=== PATIENT | female | born 1985 | race African-American/Black ===

== ENCOUNTER → 2018-11-29 | Outpatient (REF) | payer OTHER ==
[2018-11-29 23:12] LABS: CHLAMYDIA DNA AMPLIFICATION NEGATIVE (NEGATIVE); GC DNA AMPLIFICATION NEGATIVE (NEGATIVE)
== END ==
LOC: M SFHCLERA 13:37
PROVIDERS: ATTEND Nurse Practitioner Family
DX: N92.6 Irregular menstruation, unspecified (principal)
CPT/HCPCS: 81002; 81025; 87070; 87088; 87186; 87491; 87591; G0463

== ENCOUNTER → 2019-02-12 | Outpatient (CLI) | payer OTHER ==
[2019-02-12 21:00] LABS: BASO % 0.2 % (0.0-1.0); EOS # 0.1 10^3/uL (0.0-0.50); EOS % 0.5 % (0.0-3.0); HEMATOCRIT 35.8 % (36.0-47.0); HEMOGLOBIN 11.9 g/dl (12.0-15.5); LYMPH # 2.3 10^3/uL (1.5-4.5); LYMPH % 25.2 % (24.0-44.0); MEAN CORPUSCULAR HEMOGLOBIN 24.8 pg (27.0-33.0); MEAN CORPUSCULAR HGB CONC 33.2 g/dl (32.0-36.5); MEAN CORPUSCULAR VOLUME 74.6 fl (80.0-96.0); MONO # 0.4 10^3/uL (0.0-0.8); MONO % 4.4 % (0.0-5.0); NEUTROPHILS # 6.4 10^3/uL (1.8-7.7); NEUTROPHILS % 69.4 % (36.0-66.0); PLATELET COUNT, AUTOMATED 288 10^3/uL (150-450); WHITE BLOOD COUNT 9.2 10^3/uL (4.0-10.0)
[2019-02-12 21:11] LABS: FREE T4 1.01 NG/DL (0.76-1.46); GLUCOSE CHALLENGE TEST 1 HOUR 133 MG/DL (LESS THAN 140); THYROID STIMULATING HORMONE 0.928 uIU/ML (0.358-3.740)
[2019-02-12 21:14] LABS: HEMOGLOBIN A1c 5.6 %
[2019-02-12 22:28] LABS: CHLAMYDIA DNA AMPLIFICATION NEGATIVE (NEGATIVE); GC DNA AMPLIFICATION NEGATIVE (NEGATIVE)
[2019-02-13 10:19] LABS: RUBELLA IgG QUALITATIVE IMMUNE (IMMUNE)
[2019-02-13 10:48] LABS: HEPATITIS C VIRUS ABY INDEX 0.3 INDEX (<0.8)
[2019-02-13 10:49] LABS: HIV 1&2 SCREEN CENTAUR NEGATIVE (NEGATIVE)
== END ==
LOC: M LRY 14:57
PROVIDERS: ATTEND Advanced Practice Midwife
DX: Z3A.10 10 weeks gestation of pregnancy (principal)

== ENCOUNTER → 2019-02-24 | Outpatient (CLI) | payer OTHER ==
[2019-02-24 18:10] LABS: HEMOGLOBIN A1c 5.5 %
== END ==
LOC: M SMT 15:08
PROVIDERS: ATTEND Obstetrics & Gynecology
DX: Z34.82 Encounter for supervision of other normal pregnancy, second trimester (principal); Z3A.00 Weeks of gestation of pregnancy not specified

== ENCOUNTER → 2019-03-23 | Outpatient (CLI) | payer OTHER ==
--- NOTE | 2019-03-24 10:09 | REP ---
Clinical: Anatomical evaluation. Comparison: None . Findings: Examination demonstrates a single live intrauterine in cephalic presentation. motion is identified by technologist. Placenta is noted anterior and grade air grade zero without evidence for placenta previa or abruption. Amniotic fluid volume is normal. Cervix measures 3.9 cm in length and appears closed. No evidence for nuchal cord. Gestational age by LMP 18 weeks 3 days with NOEMY 08/21/2019 . Gestational age by current measurements 18 weeks 4 days with NOEMY 08/20/2019 . FHR equals 152 beats per minute. BPD 4.0 cm 18 weeks 2 days HC 15.5 cm 18 weeks 3 days AC 13.8 cm 19 weeks 2 days FL 2.9 cm 19 weeks 0 days HL 2.5 cm 17 weeks 6 days HC/AC ratio 1.12 Estimated weight 207 grams (71st percentile). Anatomical assessment demonstrates normal structures including cranium, choroid plexus, cavum, cerebellum/posterior fossa, lungs, diaphragm, stomach, cord insertion/three-vessel cord, kidneys/bladder, and extremities. Limited evaluation of the facial features, heart/ventricular outflow tracts, and spine noted. Impression: Single live intrauterine in cephalic presentation demonstrating appropriate interval growth. Anatomical limitations as noted above. No gross abnormality identified. Electronically Signed by Santos Stone MD 03/24/2019 03:46 A
== END ==
LOC: M LRY 13:53
PROVIDERS: ATTEND Obstetrics & Gynecology
DX: Z34.82 Encounter for supervision of other normal pregnancy, second trimester (principal); Z3A.18 18 weeks gestation of pregnancy

== ENCOUNTER → 2019-05-01 | Outpatient (CLI) | payer OTHER ==
--- NOTE | 2019-05-01 16:34 | REP ---
Obstetric sonography: History: Supervision of followup anatomy, facial features, heart and spine views. Findings: Scanning through the gravid uterus demonstrates a viable single intrauterine gestation in a footling breech lie. motion is observed and heart rate is recorded at 168 beats per minute. An anterior grade 0 placenta is seen without evidence of previa or abruption. Amniotic fluid is subjectively normal. Closed cervical length measures 3.3 cm viewed transabdominally. There is corpus luteum cyst in the maternal left ovary measuring 2.5 cm in greatest diameter. Transabdominal and transvaginal imaging of the internal cervical os and cervix with color Doppler interrogation demonstrate vascular structures at the internal cervical os raising the question of vasa previa. Follow-up is recommended. No anomaly is seen. Left and right ventricular cardiac outflow tract views are still less than optimally seen due to position. The following additional anatomic structures are identified and felt to be unremarkable: cranium, choroid plexus, cavum, cerebellum and posterior fossa, face and profile, lungs, four-chamber heart view, diaphragm, left-sided stomach, abdominal wall cord insertion, three-vessel cord, kidneys and bladder, spine, upper and lower extremities. Biometry chart: BPD 6.0 cm = 24 weeks 4 days Head circumference 22.4 cm = 24 weeks 3 days Abdominal circumference 19.0 cm = 23 weeks 5 days Femur length 4.4 cm = 24 weeks 3 days Humeral length 4.1 cm = 24 weeks 4 days Cerebellar diameter 2.7 cm = 24 weeks 1 day HC/AC ratio normal 1.18. Cephalic index normal 0.75. Estimated weight 663 grams, 1 pound 7 ounces, 40th percentile for 24 weeks 0 days. Impression: Viable single intrauterine gestation at 24 weeks 0 days by today's composite sonographic criteria. cardiac outflow tract views still less than optimally seen due to position. Footling breech lie. Findings suggestive of vasa previa on transabdominal and transvaginal imaging. Follow-up is recommended. Electronically Signed by Skyler Ball MD 05/01/2019 04:56 P
== END ==
LOC: M LRY 13:55
PROVIDERS: ATTEND Obstetrics & Gynecology
DX: O32.8XX0 Maternal care for other malpresentation of fetus, not applicable or unspecified (principal); Z36.89 Encounter for other specified antenatal screening; Z3A.24 24 weeks gestation of pregnancy

== ENCOUNTER → 2019-05-28 | Outpatient (CLI) | payer OTHER ==
[2019-05-28 19:24] LABS: HEMATOCRIT 31.2 % (36.0-47.0); HEMOGLOBIN 10.1 g/dl (12.0-15.5); MEAN CORPUSCULAR HEMOGLOBIN 24.9 pg (27.0-33.0); MEAN CORPUSCULAR HGB CONC 32.4 g/dl (32.0-36.5); MEAN CORPUSCULAR VOLUME 76.8 fl (80.0-96.0); PLATELET COUNT, AUTOMATED 216 10^3/uL (150-450); RED BLOOD COUNT 4.06 10^6/uL (4.00-5.40); WHITE BLOOD COUNT 8.7 10^3/uL (4.0-10.0)
== END ==
LOC: M SMT 14:01
PROVIDERS: ATTEND Obstetrics & Gynecology
DX: Z36.89 Encounter for other specified antenatal screening (principal); Z3A.00 Weeks of gestation of pregnancy not specified

== ENCOUNTER → 2019-06-24 | Outpatient (CLI) | payer OTHER ==
[~2019-06-24] MED LIST: IBUP80TA PO
== END ==
LOC: M LAB 08:20
PROVIDERS: ATTEND Pediatrics
DX: Z34.82 Encounter for supervision of other normal pregnancy, second trimester (principal); Z3A.00 Weeks of gestation of pregnancy not specified

== ENCOUNTER → 2019-07-23 | Outpatient (CLI) | payer OTHER ==
--- NOTE | 2019-07-23 20:23 | REP ---
Clinical: Gestational diabetes for well being. Comparison: 05/01/2019 . Findings: Examination demonstrates a single live intrauterine in cephalic presentation. motion is identified by technologist. Placenta is noted anterior and grade II without evidence for placenta previa or abruption. Amniotic fluid volume is normal. Cervix cannot be evaluated due to low position of the advanced head. Gestational age by LMP 35 weeks 6 days with NOEMY 08/21/2019 . Gestational age by current measurements 36 weeks 1 day with NOEMY 08/19/2019 . FHR equals 141 beats per minute. BPD 8.9 cm 36 weeks 0 days HC 33.0 cm 37 weeks 4 days AC 31.1 cm 35 weeks 0 days FL 7.1 cm 36 weeks 3 days HC/AC ratio 1.06 Estimated weight 2763 grams ( 49th percentile). Biophysical profile score: 6/8 (breathing 0, tone 2, movement 2, AFV 2) Amniotic fluid index: 11.3 cm (7.7 - 24.9) Umbilical cord SD ratio: 2.43 (2.00 - 3.00). Impression: 1. Single live advanced gestation in cephalic presentation demonstrating appropriate interval growth. 2. Biophysical profile score equals 6/8. 3. Amniotic fluid volume within normal limits. Electronically Signed by Santos Stone MD 07/23/2019 08:14 P
== END ==
LOC: M LRY 09:18
PROVIDERS: ATTEND Advanced Practice Midwife
DX: O24.410 Gestational diabetes mellitus in pregnancy, diet controlled (principal); Z36.85 Encounter for antenatal screening for Streptococcus B; Z36.89 Encounter for other specified antenatal screening

== ENCOUNTER → 2019-07-23 | Outpatient (CLI) | payer OTHER | LOC: M SMT 15:37 | PROVIDERS: ATTEND Advanced Practice Midwife | DX: Z36.85 Encounter for antenatal screening for Streptococcus B (principal); Z36.89 Encounter for other specified antenatal screening ==

== ENCOUNTER → 2019-07-28 | Outpatient (CLI) | payer OTHER ==
--- NOTE | 2019-07-28 18:38 | REP ---
Obstetric sonography: History: Gestational diabetes mellitus. Limited obstetric sonography. Biophysical profile. Findings: Scanning through the gravid uterus demonstrates a living intrauterine gestation in a cephalic lie. Amniotic fluid is subjectively normal. FORREST is normal at 17.5 cm. An anterior grade 2 placenta is seen without evidence of previa or abruption. Closed cervical length is 6.0 cm measured transabdominally. heart rate is recorded at 150 beats per minute. S/D ratio in the umbilical cord artery by Doppler is 2.88 (2.88-3.88) biophysical profile score is 8 out of a possible 8. Electronically Signed by Skyler Ball MD 07/29/2019 09:07 A
== END ==
LOC: M RAD 15:16
PROVIDERS: ATTEND Advanced Practice Midwife
DX: O24.419 Gestational diabetes mellitus in pregnancy, unspecified control (principal)

== ENCOUNTER 2019-08-03 03:00 | Inpatient (IN) | payer OTHER ==
[~2019-08-03] VITALS: Ht 170.2 cm; Wt 91.8 kg
[2019-08-03] VITALS (11 sets, daily range): BP systolic 122–154; BP diastolic 67–95
[2019-08-03] MEDS ORDERED: LR 1,000 ML IV SCH (04:40)
[2019-08-03] MEDS ORDERED: LACTATED RINGER'S 1000 ML IV STA (04:40)
[2019-08-03 05:03] LABS: HEMATOCRIT 34.2 % (36.0-47.0); HEMOGLOBIN 11.1 g/dl (12.0-15.5); MEAN CORPUSCULAR HEMOGLOBIN 23.6 pg (27.0-33.0); MEAN CORPUSCULAR HGB CONC 32.5 g/dl (32.0-36.5); MEAN CORPUSCULAR VOLUME 72.8 fl (80.0-96.0); PLATELET COUNT, AUTOMATED 149 10^3/uL (150-450); WHITE BLOOD COUNT 8.4 10^3/uL (4.0-10.0)
[2019-08-03] MEDS ORDERED: FENTANYL 2MCG/ML ROPIVACAINE 0.2% IN 0.9% NACL 100ML IVBAG As Ordered ONE (05:11)
[2019-08-03] MEDS ORDERED: OXYTOCIN 30 UNITS IN 0.9% NaCl 500ML IV BAG (J2590) As Ordered ONE (05:12)
[2019-08-03] MEDS ORDERED: OXYTOCIN DRIP 30 UNITS in APPROPRIATE DILUENT 1 EA IV SCH (05:40)
[2019-08-03] MEDS: LR 1,000 ML IV SCH ×3 (05:40→21:40)
[2019-08-03] MEDS ORDERED: RHOGAM 300 MCG (1500 IU) INJ (J2790) IM SCH (05:45)
[2019-08-03] MEDS ORDERED: IBUPROFEN 600 MG TAB PO PRN (05:45)
[2019-08-03] MEDS ORDERED: DIBUCAINE 1% OINTMENT 30GM TOP PRN (05:45)
[2019-08-03] MEDS ORDERED: ACETAMINOPHEN TAB 650MG DOSE (2X325MG) PO PRN (05:45)
[2019-08-03] MEDS ORDERED: MEASLES,MUMPS,RUBELLA VACCINE INJ (MMR-II) (90707) SC SCH (05:45)
[2019-08-03] MEDS ORDERED: ONDANSETRON 4MG/2ML VIAL (J2405) IV PRN (05:45)
[2019-08-03] MEDS ORDERED: ACETAMINOPHEN 500 MG TAB PO PRN (05:45)
[2019-08-03] MEDS ORDERED: DOCUSATE SODIUM 100 MG CAP PO PRN (05:45)
[2019-08-03] MEDS ORDERED: PROMETHAZINE 25 MG TAB PO PRN (05:45)
[2019-08-03] MEDS: IBUPROFEN 800 MG TAB PO PRN ×2 (07:23→16:07)
[2019-08-03] MEDS: PRENATAL VITAMINS CHEWABLE TABLET PO SCH (09:33)
[2019-08-03 09:41] LABS: ALT/SGPT 27 U/L (12-78); BILIRUBIN,TOTAL 0.2 MG/DL (0.2-1.0); CREATININE FOR GFR 0.74 MG/DL (0.55-1.30); GLOMERULAR FILTRATION RATE > 60.0 (>60); LDH LACTATE DEHYDROGENASE 205 U/L (84-246); URIC ACID 6.1 MG/DL (2.6-6.0)
[2019-08-04] MEDS: IBUPROFEN 800 MG TAB PO PRN ×2 (01:28→14:47)
[2019-08-04] MEDS: LR 1,000 ML IV SCH ×2 (05:40→13:40)
[2019-08-04 05:44] VITALS: BP 131/74
--- NOTE | 2019-08-04 07:10 | IPNPDOC ---
Text Note Date of Service The patient was seen on 08/04/19. NOTE Subjective: Patient reports she is doing well. States her pain is managed. She is considering discharge today but desires to talk to her about it first. Objective: VS: see below. A+O x3; Respiratory rate is regular with no use of accessory muscles; Abdomen: fundus firm at umbilicus. Perineum: Lochia is scant and dark red. Lower extremities with no edema and no pitting edema. Assessment: Day 1 Plan: Continue with supportive nursing care. Anticipate discharge later today or tomorrow. VS,Fishbone, I+O VS, Fishbone, I+O Vital Signs Date Time Temp Pulse Resp B/P (MAP) Pulse Ox O2 Delivery O2 Flow Rate FiO2 08/04/19 05:44 97.6 86 18 131/74 (93) I&O- Last 24 Hours up to 6 AM 08/04/19 06:00 Intake Total 1500 ml Output Total 800 ml Balance 700 ml SARAH MOBLEY CNM Aug 04, 2019 07:10
[2019-08-04] MEDS: PRENATAL VITAMINS CHEWABLE TABLET PO SCH (08:35)
[2019-08-04] MEDS ORDERED: ADACEL/BOOSTRIX VACCINE (DIPHTH/PERTUSS/ACELL/TETANUS)0.5ML SYR (90715) IM ONE (09:00)
[2019-08-04] MEDS ORDERED: INFLUENZA QUADRIVALENT PF VACCINE 0.5ML SYRINGE (90686) IM ONE (11:00)
[2019-08-04 18:00] VITALS: BP 118/72
[2019-08-05 06:00] VITALS: BP 104/26
[2019-08-05] MEDS: PRENATAL VITAMINS CHEWABLE TABLET PO SCH (08:04)
[2019-08-05] MEDS ORDERED: IBUP80TA PO (08:51)
== END 2019-08-05 11:20 | disposition home or self-care (01) | DRG 807 ==
LOC: M LDO 03:00 → M LDI 04:40 → M PED 09:47 → M OBS 08-04 15:15
PROVIDERS: ADMIT Obstetrics & Gynecology; ATTEND Obstetrics & Gynecology
PROC: 10E0XZZ Delivery of Products of Conception, External Approach (ICD-10-PCS; principal; 2019-08-03)
DX: O24.420 Gestational diabetes mellitus in childbirth, diet controlled (principal); Z37.0 Single live birth; Z3A.37 37 weeks gestation of pregnancy

== ENCOUNTER → 2019-09-28 | Outpatient (CLI) | payer OTHER | LOC: M LAB 08:08 | PROVIDERS: ATTEND Obstetrics & Gynecology | DX: Z86.32 Personal history of gestational diabetes (principal) ==

== ENCOUNTER → 2019-10-06 | Outpatient (CLI) | payer OTHER ==
[2019-10-06 14:05] LABS: HEMATOCRIT 35.1 % (36.0-47.0); HEMOGLOBIN 10.7 g/dl (12.0-15.5); MEAN CORPUSCULAR HEMOGLOBIN 22.4 pg (27.0-33.0); MEAN CORPUSCULAR HGB CONC 30.5 g/dl (32.0-36.5); MEAN CORPUSCULAR VOLUME 73.6 fl (80.0-96.0); PLATELET COUNT, AUTOMATED 221 10^3/uL (150-450); RED BLOOD COUNT 4.77 10^6/uL (4.00-5.40); WHITE BLOOD COUNT 5.1 10^3/uL (4.0-10.0)
[2019-10-06 14:18] LABS: ALBUMIN 3.7 GM/DL (3.2-5.2); ALT/SGPT 19 U/L (12-78); BILIRUBIN,TOTAL 0.3 MG/DL (0.2-1.0); BLOOD UREA NITROGEN 7 MG/DL (7-18); CALCIUM LEVEL 8.8 MG/DL (8.5-10.1); CARBON DIOXIDE LEVEL 27 MEQ/L (21-32); CHLORIDE LEVEL 112 MEQ/L (98-107); CREATININE FOR GFR 0.76 MG/DL (0.55-1.30); FREE T4 0.74 NG/DL (0.76-1.46); GLOMERULAR FILTRATION RATE > 60.0 (>60); GLUCOSE, FASTING 97 MG/DL (70-100); POTASSIUM SERUM 4.2 MEQ/L (3.5-5.1); SODIUM LEVEL 142 MEQ/L (136-145); TOTAL PROTEIN 7.7 GM/DL (6.4-8.2)
== END ==
LOC: M SMT 10:40
PROVIDERS: ATTEND Obstetrics & Gynecology
DX: D64.9 Anemia, unspecified (principal); R53.83 Other fatigue

== ENCOUNTER → 2019-12-21 | Outpatient (CLI) | payer OTHER ==
[2019-12-21 13:32] LABS: BASO % 0.5 % (0.0-1.0); EOS # 0.1 10^3/uL (0.0-0.5); EOS % 1.2 % (0.0-3.0); HEMATOCRIT 37.8 % (36.0-47.0); HEMOGLOBIN 11.5 g/dl (12.0-15.5); LYMPH # 2.3 10^3/uL (1.5-5.0); LYMPH % 38.3 % (24.0-44.0); MEAN CORPUSCULAR HEMOGLOBIN 21.8 pg (27.0-33.0); MEAN CORPUSCULAR HGB CONC 30.4 g/dl (32.0-36.5); MEAN CORPUSCULAR VOLUME 71.7 fl (80.0-96.0); MONO # 0.4 10^3/uL (0.0-0.8); MONO % 6.8 % (0.0-5.0); NEUTROPHILS # 3.1 10^3/uL (1.5-8.5); PLATELET COUNT, AUTOMATED 227 10^3/uL (150-450); RED BLOOD COUNT 5.27 10^6/uL (4.00-5.40); WHITE BLOOD COUNT 5.9 10^3/uL (4.0-10.0)
[2019-12-21 14:06] LABS: ALBUMIN 3.9 GM/DL (3.2-5.2); ALT/SGPT 25 U/L (12-78); BILIRUBIN,TOTAL 0.5 MG/DL (0.2-1.0); BLOOD UREA NITROGEN 6 MG/DL (7-18); CALCIUM LEVEL 8.6 MG/DL (8.5-10.1); CARBON DIOXIDE LEVEL 24 MEQ/L (21-32); CHLORIDE LEVEL 110 MEQ/L (98-107); CHOLESTEROL LEVEL 210 MG/DL (<200); CHOLESTEROL RISK RATIO 4.883 (<5); CREATININE FOR GFR 0.83 MG/DL (0.55-1.30); GLOMERULAR FILTRATION RATE > 60.0 (>60); GLUCOSE, FASTING 80 MG/DL (70-100); HDL CHOLESTEROL 43 MG/DL (>40); LDL CHOLESTEROL 148 MG/DL (<100); NON-HDL-C 167 MG/DL; POTASSIUM SERUM 4.2 MEQ/L (3.5-5.1); SODIUM LEVEL 141 MEQ/L (136-145); TOTAL PROTEIN 8.1 GM/DL (6.4-8.2); TRIGLYCERIDES LEVEL 96 MG/DL (<150)
[2019-12-21 14:09] LABS: FOLLICLE STIMULATING HORMONE 9.2 mIU/mL; LUTEINIZING HORMONE 9.6 mIU/mL; TESTOSTERONE 31 NG/DL (14-76)
[2019-12-21 14:14] LABS: HEMOGLOBIN A1c 6.3 %
== END ==
LOC: M LRY 10:10
PROVIDERS: ATTEND Family Medicine
DX: E28.2 Polycystic ovarian syndrome (principal); Z13.0 Encounter for screening for diseases of the blood and blood-forming organs and certain disorders involving the immune mechanism; Z13.29 Encounter for screening for other suspected endocrine disorder; Z13.220 Encounter for screening for lipoid disorders

== ENCOUNTER → 2020-01-20 | Outpatient (REF) | payer OTHER | LOC: M SFHCLERA 19:46 | PROVIDERS: ATTEND Physician Assistant | DX: R30.0 Dysuria (principal) | CPT/HCPCS: 81002; 87086; G0463 ==

== ENCOUNTER → 2020-03-16 | Outpatient (CLI) | payer OTHER ==
[2020-03-16 21:07] LABS: CHLAMYDIA DNA AMPLIFICATION NEGATIVE (NEGATIVE); GC DNA AMPLIFICATION NEGATIVE (NEGATIVE)
== END ==
LOC: M PLALAB 12:53
PROVIDERS: ATTEND Obstetrics & Gynecology
DX: Z12.4 Encounter for screening for malignant neoplasm of cervix (principal); Z11.3 Encounter for screening for infections with a predominantly sexual mode of transmission
CPT/HCPCS: 36415; 87624; 87661; G0123; G0463